=== PATIENT | female | born 1985 | race African-American/Black ===

== ENCOUNTER 2016-05-12 17:09 | Emergency (ER) | payer BC ==
--- NOTE | 2016-06-07 21:25 | ER ---
ADMIT: 05/12/2016 RM/LOC: ER [facility] MR#: [id number] [facility] [address] [place] [id number] JODIE VICENTEHIR [address] [place] [address] Emergency Room Report SEX: F AGE: 31 : 1985 DATE: 05/12/2016 HISTORY OF PRESENT ILLNESS: A 31-year-old who is approximately 12 to 14 weeks' , comes to the Emergency Department with near syncopal episode and vomiting. She was standing at work today when she felt lightheaded. See T-sheet for remainder history and physical. UA is negative. The patient given a liter of fluids and Zofran. Feels better subsequent to discharge. Instructed to follow up with primary doctor for performance improvement specialist yet this week. DIAGNOSIS: Vomiting in . Leno Kenny MD/ ting JOB #: [id number] CC: Nick Parkinson MD, Attending Physician Sarah Roca MD, Family Physician
== END 2016-05-12 19:01 | disposition home or self-care (01) ==
LOC: ER 17:09
DX: O21.9 Vomiting of pregnancy, unspecified (principal)